=== PATIENT | male | born 1995 ===

== ENCOUNTER 2019-06-15 01:04 | Emergency (ER) | payer MEDICAID ==
--- NOTE | 2019-06-15 02:47 | Emergency Department Report ---
ED General Adult HPI - General Chief complaint: Psych Stated complaint: MH EVALUATION Time Seen by Provider: 06/15/19 02:09 Source: patient Mode of arrival: Ambulatory Limitations: No Limitations - History of Present Illness Initial comments: Patient presents to the emergency department with his father for schizophrenia. Per the patient's father the patient was walking the streets [place] not to get his medications. He brought his son to [place] for better treatment. Prior to leaving the [place] he was able to get the patient's Respinol an SSRI filled. Patient states he's been taking the medication since he has been living with his dad but prior to that it had been quite some time since he had taken medicine. Patient denies any homicidal suicidal ideations. Patient does endorse having auditory hallucinations. He states that he hears 2 voices with 1 of the voices being a lady and the other man. Patient denies the voices given him instructions to harm himself or others -: unknown Severity scale (0 -10): 0 Consistency: constant Improves with: none Worsens with: none Associated Symptoms: denies other symptoms Treatments Prior to Arrival: none - Related Data Home Medications Medication Instructions Recorded Confirmed Last Taken FLUoxetine [PROzac] 20 mg PO QDAY 06/15/19 06/15/19 Unknown Quetiapine Fumarate [SEROquel] 400 mg PO DAILY 06/15/19 06/15/19 Unknown risperiDONE [Risperdal] 4 mg PO DAILY 06/15/19 06/15/19 Unknown risperiDONE [RisperiDONE] 1 mg PO QDAY 06/15/19 06/15/19 Unknown Allergies Allergy/AdvReac Type Severity Reaction Status Date / Time No Known Allergies Allergy Unverified 06/15/19 01:07 ED Review of Systems ROS: Stated complaint: MH EVALUATION Other details as noted in HPI Comment: All other systems reviewed and negative Constitutional: denies: chills, fever Eyes: denies: eye pain, eye discharge, vision change ENT: denies: ear pain, throat pain Respiratory: denies: cough, shortness of breath, wheezing Cardiovascular: denies: chest pain, palpitations Endocrine: no symptoms reported Gastrointestinal: denies: abdominal pain, nausea, diarrhea Genitourinary: denies: urgency, dysuria Musculoskeletal: denies: back pain, joint swelling, arthralgia Skin: denies: rash, lesions Neurological: denies: headache, weakness, paresthesias Psychiatric: auditory hallucinations. denies: anxiety, depression, visual hallucinations, homicidal thoughts, suicidal thoughts Hematological/Lymphatic: denies: easy bleeding, easy bruising ED Past Medical Hx - Past Medical History Previous Medical History?: Yes Hx Psychiatric Treatment: Yes (schizophrenia) - Surgical History Past Surgical History?: No - Social History Smoking Status: Current Every Day Smoker Substance Use Type: Marijuana - Medications Home Medications: Home Medications Medication Instructions Recorded Confirmed Last Taken Type FLUoxetine [PROzac] 20 mg PO QDAY 06/15/19 06/15/19 Unknown History Quetiapine Fumarate [SEROquel] 400 mg PO DAILY 06/15/19 06/15/19 Unknown History risperiDONE [Risperdal] 4 mg PO DAILY 06/15/19 06/15/19 Unknown History risperiDONE [RisperiDONE] 1 mg PO QDAY 06/15/19 06/15/19 Unknown History ED Physical Exam - General Limitations: No Limitations General appearance: alert, in no apparent distress - Head Head exam: Present: atraumatic, normocephalic - Eye Eye exam: Present: normal appearance, PERRL, EOMI - ENT ENT exam: Present: mucous membranes moist - Neck Neck exam: Present: normal inspection - Respiratory Respiratory exam: Present: normal lung sounds bilaterally. Absent: respiratory distress - Cardiovascular Cardiovascular Exam: Present: regular rate, normal rhythm. Absent: systolic murmur, diastolic murmur, rubs, gallop - GI/Abdominal GI/Abdominal exam: Present: soft, normal bowel sounds. Absent: distended, tenderness - Rectal Rectal exam: Present: deferred - Extremities Exam Extremities exam: Present: normal inspection - Back Exam Back exam: Present: normal inspection - Neurological Exam Neurological exam: Present: alert, oriented X3, CN II-XII intact. Absent: motor sensory deficit - Psychiatric Psychiatric exam: Present: normal affect, normal mood, anxious. Absent: homicidal ideation, suicidal ideation - Skin Skin exam: Present: warm, dry, intact, normal color. Absent: rash ED Course Vital Signs 06/15/19 06/15/19 01:08 03:31 Temperature 97.9 F Pulse Rate 73 Respiratory 18 18 Rate Blood Pressure 135/81 O2 Sat by Pulse 99 Oximetry ED Medical Decision Making - Lab Data Result diagrams: 06/15/19 02:45 06/15/19 02:45 - Medical Decision Making Patient awaiting psychiatric evaluation and medical clearance Critical care attestation.: If time is entered above; I have spent that time in minutes in the direct care of this critically ill patient, excluding procedure time. ED Disposition Clinical Impression: Schizophrenia, Auditory hallucinations Disposition: [id number]/[facility]-[id number] PSY HOSP/PSY UNIT Is pt being admited?: No Does the pt Need Aspirin: No Condition: Stable Referrals: PRIMARY CARE, [Primary Care Provider] - 3-5 Days
[2019-06-15 03:20] LABS: Basophils % (Auto) 0.6 % (0.0-1.8); Eosinophils # (Auto) 0.2 K/mm3 (0.0-0.4); Eosinophils % (Auto) 2.9 % (0.0-4.3); Hematocrit 41.8 % (35.5-45.6); Hemoglobin 13.9 gm/dl (11.8-15.2); Lymphocytes # (Auto) 1.6 K/mm3 (1.2-5.4); Lymphocytes % (Auto) 28.6 % (13.4-35.0); Mean Corpuscular HGB Conc 33 % (32-34); Mean Corpuscular Volume 95 fl (84-94); Monocytes # (Auto) 0.2 K/mm3 (0.0-0.8); Monocytes % (Auto) 4.3 % (0.0-7.3); Platelet Count 162 K/mm3 (140-440); Red Cell Distribution Width 12.8 % (13.2-15.2)
[2019-06-15 04:01] LABS: Alanine Aminotransferase 11 units/L (7-56); Albumin 4.3 g/dL (3.9-5); BUN/Creatinine Ratio 12; Blood Urea Nitrogen 14 mg/dL (9-20); Calcium 9.3 mg/dL (8.4-10.2); Hemolysis Index 10
[2019-06-15 07:30] LABS: Amphetamine Screen,Urine PRESUMPTIVE NEGATIVE; Benzodiazepines Screen,Urine PRESUMPTIVE NEGATIVE; Cocaine Screen,Urine PRESUMPTIVE NEGATIVE; Methadone Screen,Urine PRESUMPTIVE NEGATIVE; Opiate Screen,Urine PRESUMPTIVE NEGATIVE
[2019-06-15 07:31] LABS: Bilirubin,Urine NEG (Negative); Blood,Urine NEG (Negative); Color,Urine Straw (Yellow); Protein,Urine <15 mg/dL mg/dL (Negative); Urobilinogen,Urine < 2.0 mg/dL (<2.0); WBC,Urine < 1.0 /HPF (0.0-6.0)
[2019-06-15 07:43] LABS: Cannabinoid Screen,Urine PRESUMPTIVE POSITIVE
--- NOTE | 2019-06-15 15:34 | Consultation ---
History of Present Illness - Reason for Consult Consult date: 06/15/19 Reason for consult: Initial Psychiatric Illness - Chief Complaint Chief complaint: "I suffer from schizophrenia" - History of Present Psychiatric Illness Patient is a 23 year old male that presents to the emergency room with a history of schizophrenia. Patient was accompanied by his father. Per the patient's father the patient was walking the streets [place] and not compliant with his medications. He brought his son to [place] for better treatment. Today the patient is calm and cooperative during the assessment. He appears somewhat guarded. He endorses auditory/visual hallucinations. For example, patient states " the voices tell me to change my clothes. Also, I see numbers." Patient thought content is impoverished. He reports labile mood and being easily irritated. Per patient he has appropriate sleep, appetite, and energy. He denies HI's and paranoid delusions. Patient verbalizes that he is compliant with his medications. Current Psychiatric Medications: Risperdal 2mg po QHS- compliant Past Psychiatric History: Schizophrenia (2017); 3 previous inpatient psychiatric hospitalizations (located in [place]- name unknown); no outpatient psychiatrist; no suicide attempts. Past Medication Trials: Patient denies. History of Alcohol Abuse/Drugs: Patient denies. UDS positive for marijuana. History of Trauma/Abuse: Patient denies trauma; patient denies sexual, physical, and mental abuse. Family History of Psychiatric Illness/Substance Abuse: Patient denies. Social History: 12th grade- highest level of education; lives with mother/father in [place], [place]; 1 daughter- 3 years old ( lives in [place]); no source of income. Medications and Allergies Allergies Allergy/AdvReac Type Severity Reaction Status Date / Time No Known Allergies Allergy Unverified 06/15/19 01:07 Home Medications Medication Instructions Recorded Confirmed Last Taken Type FLUoxetine [PROzac] 20 mg PO QDAY 06/15/19 06/15/19 Unknown History Quetiapine Fumarate [SEROquel] 400 mg PO DAILY 06/15/19 06/15/19 Unknown History risperiDONE [Risperdal] 4 mg PO DAILY 06/15/19 06/15/19 Unknown History risperiDONE [RisperiDONE] 1 mg PO QDAY 06/15/19 06/15/19 Unknown History Mental Status Exam - Vital signs Last Vital Signs Temp 97.6 F 06/15/19 13:00 Pulse 55 L 06/15/19 13:00 Resp 16 06/15/19 13:00 BP 123/49 06/15/19 13:00 Pulse Ox 100 06/15/19 13:00 - Exam Narrative exam: Mental Status Exam Appearance: casually dressed Behavior: regular eye contact , guarded Speech: regular rate and loud tone Mood: " I feel alright" Affect: congruent to mood Thought Process: logical Thought Content: denies SI/HI's and delusions; + A/VH's Motor Activity: sitting up in bed Cognition: A/O x 2 ( not oriented to date) Insight: limited to poor Judgment: poor Results Result Diagrams: 06/15/19 02:45 06/15/19 02:45 Abnormal lab results 06/15/19 06/15/19 06/15/19 Range/Units 02:45 02:45 02:45 MCV 95 H (84-94) fl RDW 12.8 L (13.2-15.2) % Glucose 126 H (75-100) mg/dL Salicylates < 0.3 L (2.8-20.0) mg/dL Acetaminophen (10.0-30.0) ug/mL 06/15/19 Range/Units 02:45 MCV (84-94) fl RDW (13.2-15.2) % Glucose (75-100) mg/dL Salicylates (2.8-20.0) mg/dL Acetaminophen < 5.0 L (10.0-30.0) ug/mL All other labs normal. Assessment and Plan Assessment and plan: Impression:. PPHx schizophrenia. Today the patient is calm and cooperative during the assessment. Patient endorses psychosis. UDS positive for marijuana. Recommendation/Plan: 1. Continue 1013. 2. Continue home medication -Risperdal 2mg po QHS mood/psychosis. Attempted to discuss possible metabolic side effects of with the patient. Baseline/Lipid Panel ordered for the AM. Patient verbalizes some understanding. Disposition: The patient was referred to inpatient psychiatric services. Will staff with Dr. Tyrell Fernandez.
[2019-06-15 16:44] LABS: Chol/HDL Ratio 2.41 %
[2019-06-15] MEDS: risperiDONE 1 MG TAB PO SCH (22:20)
--- NOTE | 2019-06-16 11:50 | Progress Note ---
Subjective - Reason for Consult Consult date: 06/16/19 Reason for consult: Psychiatric Follow-up Evaluation - Chief Complaint Chief complaint: "I'm alright. " Patient is a 23 year old male that presents to the emergency room with a history of schizophrenia. Today the patient is cooperative but anxious during the assessment. Patient continues to be very guarded/evasive during the assessment. He continues to endorse AH's, but refuses to tell provider what they're saying. During the assessment patient is talking/laughing to self. Also, patient presents with paranoid delusions- Appears suspicious of provider. He keeps watching computer screen. He reports adequate sleep and appetite. He denies SI/HI's and VH's. Mental Status Exam - Vital signs Last Vital Signs Temp 98.4 F 06/16/19 02:39 Pulse 59 L 06/16/19 02:39 Resp 16 06/16/19 02:39 BP 119/64 06/16/19 02:39 Pulse Ox 99 06/16/19 02:39 - Exam Narrative exam: Mental Status Exam Appearance: casually dressed Behavior: regular eye contact , guarded Speech: regular rate and loud tone Mood: " I feel alright" Affect: congruent to mood Thought Process: logical Thought Content: denies SI/HI's and VH's ; + AH's and paranoid delusions Motor Activity: ambulatory Cognition: A/O x 2 ( not oriented to date) Insight: limited to poor Judgment: poor Assessment and Plan Impression:. PPHx schizophrenia. Today the patient is cooperative but anxious during the assessment. Patient endorses psychosis. UDS positive for marijuana. Recommendation/Plan: 1. Continue 1013. 2. Continue home medication -Risperdal 2mg po QHS mood/psychosis. Attempted to discuss possible metabolic side effects of with the patient. Baseline/Lipid Panel ordered for the AM. Patient verbalizes some understanding. Disposition: The patient was referred to inpatient psychiatric services. Will staff with Dr. Tyrell Fernandez.
[2019-06-16] MEDS: risperiDONE 1 MG TAB PO SCH (22:41)
--- NOTE | 2019-06-17 15:13 | Progress Note ---
Subjective - Reason for Consult Consult date: 06/17/19 Reason for consult: Psychiatry Follow-up - Chief Complaint Chief complaint: "I'm here now" 23 year old AA male who presented to the ER for acute psychosis. Today the patient was calm, but disorganized during the assessment. He had to be redirected several time to keep him on topic. His answers to questions were not logical. He appeared to be responding to some type of stimuli. overall, the patient isn't a good historian. No gestures of SI/HI's. Mental Status Exam - Vital signs Last Vital Signs Temp 98.1 F 06/17/19 13:00 Pulse 80 06/17/19 13:00 Resp 18 06/17/19 13:00 BP 120/72 06/17/19 13:00 Pulse Ox 99 06/17/19 13:00 - Exam Narrative exam: MSE: Appearance: calm Behavior: regular eye contact Speech: regular rate and low tone Mood: "okay" Affect: flat Thought Process: disorganized Thought Content: no gestures of SI/HI's Motor Activity: sitting up in the bed Cognition: A/O x 3 Insight: poor Judgment: poor Assessment and Plan Impression: Unspecified Psychosis. Cannabis Use DO. Today the patient was calm, but disorganized during the assessment. DDx: Schizophrenia, Bipolar DO with psychosis, Substance Induced Psychosis Recommendations/Plan: Continue 1013 and Risperdal 2 mg PO HS for psychosis. Attempted to discuss possible metabolic side effects of Risperdal with the patient. Dipso: The patient was referred to inpatient psy services. Will staff with Dr Tyrell Fernandez.
[2019-06-17] MEDS: risperiDONE 1 MG TAB PO SCH (23:14)
--- NOTE | 2019-06-18 10:16 | Progress Note ---
Subjective - Reason for Consult Consult date: 06/18/19 Reason for consult: Psychiatry Follow-up - Chief Complaint Chief complaint: "Hello" 23 year old AA male who presented to the ER for acute psychosis. Today the patient was calm during the assessment. Some of his answers to questions were logical. He did not need redirection to keep him on topic. He denies SI/HI's and VH's. He would not confirm or deny AH's. No indications of side effects from his medication. Mental Status Exam - Vital signs Last Vital Signs Temp 97.9 F 06/18/19 03:01 Pulse 64 06/18/19 03:01 Resp 18 06/18/19 03:01 BP 124/64 06/18/19 03:01 Pulse Ox 97 06/18/19 03:01 - Exam Narrative exam: MSE: Appearance: calm, cooperative Behavior: regular eye contact Speech: regular rate and low tone Mood: "okay" Affect: congruent to mood Thought Process: circumstantial Thought Content: denies SI/HI's and VH's Motor Activity: sitting up in the bed Cognition: A/O x 3 Insight: variable Judgment: variable Assessment and Plan Impression: Unspecified Psychosis. Cannabis Use DO. Today the patient was calm during the assessment. DDx: Schizophrenia, Bipolar DO with psychosis, Substance Induced Psychosis Recommendations/Plan: Reevaluate the patient's 1013 in 24 hours. Continue 1013 and Risperdal 2 mg PO HS for psychosis. Attempted to discuss possible metabolic side effects of Risperdal with the patient. Dipso: If the patient's 1013 is rescinded in 24 hours, he can follow up with [facility] for outpatient psy services. The patient was referred to inpatient psy services. Will staff with Dr Tyrell Fernandez.
[2019-06-18] MEDS: risperiDONE 1 MG TAB PO SCH (22:30)
--- NOTE | 2019-06-19 13:55 | Progress Note ---
Subjective - Reason for Consult Consult date: 06/19/19 Reason for consult: Psychiatric Follow-up Evaluation - Chief Complaint Chief complaint: "I feel alright" Patient is a 23 year old AA male who presented to the ER for acute psychosis. Today the patient is cooperative but anxious during the assessment. Some of his answers to questions were logical. Patient can be seen responding to internal stimuli aloud. Patient's is changing his voice throughout the assessment. He endorses AH's but refuses to tell provider what the voices are saying. He reports appropriate sleep and appetite. No indications of side effects from his medication. Provider attempted to contact patient's father x 2 at 2:45pm. No answer. He denies SI/HI's and VH's. Mental Status Exam - Vital signs Last Vital Signs Temp 97.3 F L 06/19/19 07:00 Pulse 98 H 06/19/19 07:00 Resp 18 06/19/19 07:00 BP 112/53 06/19/19 07:00 Pulse Ox 96 06/19/19 07:00 - Exam Narrative exam: Mental Status Exam: Appearance: anxious, cooperative Behavior: regular eye contact Speech: regular rate and low tone Mood: " I'm alright" Affect: congruent to mood Thought Process: circumstantial Thought Content: denies SI/HI's and VH's; AH's ( talking and laughing) Motor Activity: ambulatory Cognition: A/O x 3 Insight: variable Judgment: variable Assessment and Plan Impression: Unspecified Psychosis. Cannabis Use DO. Today the patient is cooperative but anxious during the assessment. He presents with perceptual disturbances. Insight/judgment variable. DDx: Schizophrenia, Bipolar DO with psychosis, Substance Induced Psychosis Recommendations/Plan: 1. Reevaluate the patient's 1013 in 24 hours. 2. Continue Risperdal 2 mg PO HS for psychosis. Attempted to discuss possible metabolic side effects of Risperdal with the patient. Disposition: If the patient's 1013 is rescinded in 24 hours, he can follow up with [facility] for outpatient psychiatric services. The patient was referred to inpatient psychiatric services. Will staff with Dr. Tyrell Fernandez.
[2019-06-19] MEDS: risperiDONE 1 MG TAB PO SCH (23:00)
[2019-06-20 09:28] VITALS: BP 118/77
--- NOTE | 2019-06-20 11:32 | Progress Note ---
Subjective - Reason for Consult Consult date: 06/20/19 Reason for consult: Psychiatry Follow-up - Chief Complaint Chief complaint: "I don't want to talk" Patient is a 23 year old AA male who presented to the ER for acute psychosis. Today the patient was not cooperative during the assessment. Several attempts was made to engage the patient, but was unsuccessful. No gestures of SI/HI's. Mental Status Exam - Vital signs Last Vital Signs Temp 98.2 F 06/20/19 07:40 Pulse 79 06/20/19 07:40 Resp 18 06/20/19 07:40 BP 118/77 06/20/19 07:40 Pulse Ox 99 06/20/19 07:40 - Exam Narrative exam: Unable to complete the MSE because the patient refused to cooperate. Assessment and Plan Impression: Unspecified Psychosis. Cannabis Use DO. Today the patient was uncooperative during the assessment. DDx: Schizophrenia, Bipolar DO with psychosis, Substance Induced Psychosis Recommendations/Plan: Continue 1013 and Risperdal 2 mg PO HS for psychosis. Attempted to discuss possible metabolic side effects of Risperdal with the patient. Dipso: The patient was accepted at [facility] for inpatient psy services. Will staff with Dr Tyrell Fernandez.
== END 2019-06-20 11:51 ==
LOC: EEVIPCON 01:04 → ED 01:04
DX: F20.9 Schizophrenia, unspecified (principal); F17.200 Nicotine dependence, unspecified, uncomplicated; F12.10 Cannabis abuse, uncomplicated; Z79.899 Other long term (current) drug therapy
CPT/HCPCS: 36415; 80053; 80061; 80307; 80320; 81001; 83036; 85025; G0480